=== PATIENT | female | born 1970 | race Caucasian/White ===

== ENCOUNTER 2020-06-29 08:16 | Emergency (ER) | payer OTHER ==
[~2020-06-29 08:16] MED LIST: FLOMAX 0.4 MG0.4 MG PO; KETOROLAC TROME10 MG PO; ZOFRAN4 MG SL
== END 2020-06-29 10:09 | disposition home or self-care (01) ==
LOC: FER 08:16
DX: S00.83XA Contusion of other part of head, initial encounter (principal); M54.2 Cervicalgia; G89.29 Other chronic pain; Z79.891 Long term (current) use of opiate analgesic; V49.40XA Driver injured in collision with unspecified motor vehicles in traffic accident, initial encounter; Y92.410 Unspecified street and highway as the place of occurrence of the external cause
CPT/HCPCS: 70450